=== PATIENT | female | born 1985 | race Hispanic/Latino ===

== ENCOUNTER 2021-12-04 12:55 | Emergency (ER) | payer SELFPAY ==
[~2021-12-04] VITALS: Ht 149.9 cm; Wt 67.1 kg
[2021-12-04] MEDS ORDERED: Morphine 4mg Syringe 4 MG/ML INJ IV PRN (14:00)
[2021-12-04] MEDS ORDERED: SODIUM CHLORIDE 0.9% 1000ML 1,000 ML IV ONE (14:00)
[2021-12-04] MEDS ORDERED: ONDANSETRON HCL INJ 2MG/ML 2ML 2 MG/ML VIAL IV PRN (14:00)
[2021-12-04 14:07] LABS: BASOPHILS % 0.3 % (0.0-1.0); EOSINOPHILS # (AUTO) 0.2 (0.0-0.4); EOSINOPHILS % 2.1 % (0.0-6.0); HEMATOCRIT 36.3 % (34.2-44.1); HEMOGLOBIN 11.6 g/dL (12.0-16.0); LYMPHOCYTES # (AUTO) 1.9 (1.0-3.2); LYMPHOCYTES % 20.8 % (18.0-39.1); MEAN CORPUSCULAR HEMOGLOBIN 29.1 pg (28-32); MONOCYTES # (AUTO) 0.5 (0.2-0.8); MONOCYTES % 5.4 % (4.4-11.3); NEUTROPHILS # (AUTO) 6.4 (2.1-6.9); NEUTROPHILS % 71.2 % (38.7-80.0); PLATELET COUNT 333 x10e3/uL (140-360); RED BLOOD COUNT 3.99 x10e6/uL (3.6-5.1); RED CELL DISTRIBUTION WIDTH 13.5 % (11.7-14.4)
[2021-12-04] MEDS ORDERED: Morphine 2mg Syringe 2 MG/ML SYR ONE (14:09)
[2021-12-04] MEDS ORDERED: SODIUM CHLORIDE 0.9% 1000ML 1,000 ML ONE (14:10)
[2021-12-04 14:18] LABS: AMYLASE 71 U/L (25-125); LIPASE 30 U/L (8-78)
[2021-12-04 14:20] LABS: ALBUMIN 3.9 g/dL (3.5-5.0); ALBUMIN/GLOBULIN RATIO 1.1 (0.8-2.0); ANION GAP 9.8 mmol/L (8-16); CALCIUM 8.9 mg/dL (8.4-10.2); CREATININE, SERUM 0.7 mg/dL (0.57-1.11); POTASSIUM 3.8 mmol/L (3.5-5.1)
[2021-12-04] MEDS ORDERED: FENTANYL CITRATE/PF 100MCG/2 ML INJ IV ONE (15:30)
[2021-12-04] MEDS ORDERED: DICYCLOMINE HCL20 MG PO (15:45)
[2021-12-04] MEDS ORDERED: ONDANSETRON ODT4 MG PO (15:45)
[2021-12-04] MEDS ORDERED: ULTRAM 50MG50 MG PO (15:45)
== END 2021-12-04 16:35 | disposition home or self-care (01) ==
LOC: ER 13:10
DX: R10.13 Epigastric pain (principal); K80.20 Calculus of gallbladder without cholecystitis without obstruction; K76.0 Fatty (change of) liver, not elsewhere classified; R11.0 Nausea
CPT/HCPCS: 36415; 74018; 76705; 80053; 82150; 83690; 84702; 85025; 99284; J2270; J2405; J3010; J7030